=== PATIENT | female | born 1995 | race African-American/Black ===

== ENCOUNTER 2020-07-27 11:09 | Emergency (ER) | payer SELFPAY ==
[~2020-07-27] VITALS: Ht 162.6 cm; Wt 73.1 kg
[2020-07-27] MEDS ORDERED: PRENATAL CAPLE1 EACH (11:23)
[2020-07-27] MEDS ORDERED: CEFTRIAXONE SOD 1 GM/50 ML BAG IV ONE (12:30)
[2020-07-27] MEDS ORDERED: SODIUM CHLORIDE 0.9% 1000ML 1,000 ML IV SCH (12:30)
[2020-07-27] MEDS ORDERED: CEFTRIAXONE SOD 1 GM 50 ML IV ONE (12:40)
[2020-07-27] MEDS ORDERED: SODIUM CHLORIDE 0.9% 1000ML 1,000 ML ONE (12:40)
[2020-07-27 14:50] LABS: BASOPHILS # (AUTO) 0.1 (0.0-0.1); BASOPHILS % 0.8 % (0.0-1.0); EOSINOPHILS # (AUTO) 0.1 (0.0-0.4); EOSINOPHILS % 0.7 % (0.0-6.0); HEMATOCRIT 36.7 % (34.2-44.1); HEMOGLOBIN 11.8 g/dL (12.0-16.0); LYMPHOCYTES # (AUTO) 1.4 (1.0-3.2); LYMPHOCYTES % 18.8 % (18.0-39.1); MEAN CORPUSCULAR HEMOGLOBIN 28.8 pg (28-32); MEAN CORPUSCULAR HGB CONC 32.2 g/dL (31-35); MEAN CORPUSCULAR VOLUME 89.5 fL (81-99); MONOCYTES # (AUTO) 0.4 (0.2-0.8); MONOCYTES % 5.5 % (4.4-11.3); NEUTROPHILS # (AUTO) 5.4 (2.1-6.9); NEUTROPHILS % 73.9 % (38.7-80.0); PLATELET COUNT 338 x10e3/uL (140-360); RED CELL DISTRIBUTION WIDTH 13.1 % (11.7-14.4)
[2020-07-27] MEDS ORDERED: BACTRIM DS TAB1 EACH PO (16:05)
[2020-07-27 16:17] VITALS: BP 122/68
== END 2020-07-27 16:17 | disposition home or self-care (01) ==
LOC: FSED 11:37
DX: O03.9 Complete or unspecified spontaneous abortion without complication (principal); R10.30 Lower abdominal pain, unspecified
CPT/HCPCS: 36415; 81003; 81025; 84702; 85025; 93976; 99284; J0696; J7030

== ENCOUNTER 2020-08-23 08:49 | Emergency (ER) | payer SELFPAY ==
[~2020-08-23] VITALS: Ht 162.6 cm; Wt 74.6 kg
[~2020-08-23 08:49] MED LIST: BACTRIM DS TAB1 EACH PO; PRENATAL CAPLE1 EACH
[2020-08-23] MEDS ORDERED: IBUPROFEN 600 MG TAB PO STA (09:23)
[2020-08-23] MEDS ORDERED: FLUORESCEIN SOD(OPTH) 1 MG STRP ONE (09:25)
[2020-08-23] MEDS ORDERED: TETRACAINE HCL 0.5% OPTH SOLN 4 ML BTL ONE (09:25)
[2020-08-23] MEDS ORDERED: MAXITROL EYE DRO5 ML OP (09:27)
[2020-08-23] MEDS ORDERED: NAPROSYN500 MG PO (09:27)
[2020-08-23] MEDS ORDERED: TETRACAINE HCL 0.5% OPTH SOLN 4 ML BTL OP ONE (09:30)
[2020-08-23] MEDS ORDERED: FLUORESCEIN SOD(OPTH) 1 MG STRP OP ONE (09:30)
[2020-08-23] MEDS ORDERED: IBUPROFEN 600 MG TAB ONE (09:34)
== END 2020-08-23 09:37 | disposition home or self-care (01) ==
LOC: FSED 09:25
DX: H57.11 Ocular pain, right eye (principal); S05.01XA Injury of conjunctiva and corneal abrasion without foreign body, right eye, initial encounter
CPT/HCPCS: 99283